=== PATIENT | female | born 1970 | race American Indian/Alaskan Native ===

== ENCOUNTER 2018-11-06 10:43 | Outpatient (CLI) | payer BC ==
--- NOTE | 2018-11-06 15:49 | Mammography Report ---
DIGITAL SCREENING MAMMOGRAM WITH CAD, 11/06/2018 INDICATION: Baseline screening mammography. TECHNIQUE: Digital bilateral 2D mammography was obtained in the craniocaudal and mediolateral obliq ue projections. This examination was interpreted with the benefit of Computer-Aided Detection analysi s. COMPARISON: None. FINDINGS: Breast Density: The breasts are almost entirely fatty. There is no evidence of dominant mass, suspicious calcifications or architectural distortion in the l eft breast. Right asymmetries require additional imaging. IMPRESSION: Right asymmetries requiring additional imaging. Recommend recall for right spot compressi on views and right breast ultrasound. Follow up recommendation: Special View: Spot Category 0: Incomplete. Needs additional imaging evaluation and/or prior mammograms for comparison. A "normal" or negative report should not discourage follow up or biopsy of a clinically significant f inding. A written summary of these findings will be mailed to the patient. The patient will be entered into a mammography reporting system which will generate a reminder letter for the patient's next appointmen t at the appropriate interval. [employer] recommends yearly mammograms starting at age 40 and continuing as l linda as a woman is in good health. Breast MRI is recommended for women with an approximate 20-25% or greater lifetime risk of breast cancer, including women with a strong family history of breast or ova rafi cancer or who have been treated for Hodgkin's disease. Signer Name: Jack Meredith MD Signed: 11/06/2018 3:44 PM Workstation Name: [id number]
== END 2018-11-06 10:44 | disposition home or self-care (01) ==
LOC: SPVWC 10:43
DX: Z12.31 Encounter for screening mammogram for malignant neoplasm of breast (principal)
CPT/HCPCS: 77067